=== PATIENT | female | born 1955 | race Caucasian/White ===

== ENCOUNTER 2018-06-03 08:08 | Outpatient (CLI) | payer BC ==
--- NOTE | 2018-06-03 09:34 | BD ---
BONE DENSITOMETRY: Date: 06/03/18 INDICATION: 63-year-old female for postmenopausal osteoporosis screening. FINDINGS: Lumbar Spine: BMD (g/cm2) L1 0.953 T-Score: -0.3 L2 1.031 T-Score: 0.0 L3 1.040 T-Score: -0.4 L4 0.908 T-Score: -1.4 Total 0.981 T-Score: -0.6 Left Femoral Neck: 0.840 T-Score: -0.1 Total Femur: 1.000 T-Score: 0.5 IMPRESSION: Bone mineral density of the lumbar spine and femoral neck both are within normal range. POS: [facility]
--- NOTE | 2018-06-14 13:10 | MMO ---
Bilateral MAMMO Bilat Screen [facility]. CLINICAL HISTORY: Patient is 63 years old and is seen for screening. The patient has the following family history of breast cancer: maternal aunt, at age 40. VIEWS: The views performed were: bilateral craniocaudal with tomosynthesis and bilateral mediolateral oblique with tomosynthesis. FILMS COMPARED: The present examination has been compared to prior imaging studies performed at [facility] on 03/06/2015, 04/28/2016 and 05/13/2017. MAMMOGRAM FINDINGS: The breasts are heterogeneously dense, which could obscure a lesion on mammography. There are no suspicious masses, suspicious calcifications, or new areas of architectural distortion. IMPRESSION: THERE IS NO MAMMOGRAPHIC EVIDENCE OF MALIGNANCY. A ROUTINE FOLLOW-UP MAMMOGRAM IN 1 YEAR IS RECOMMENDED. THE RESULTS OF THIS EXAM WERE SENT TO THE PATIENT. ACR BI-RADS Category 1 - Negative MAMMOGRAPHY NOTE: 1. A negative mammogram report should not delay a biopsy if a dominant of clinically suspicious mass is present. 2. Approximately 10% to 15% of breast cancers are not detected by mammography. 3. Adenosis and dense breasts may obscure an underlying neoplasm.
== END 2018-06-03 08:09 | disposition home or self-care (01) ==
LOC: BICMAMMO 08:08
PROVIDERS: ATTEND Internal Medicine
DX: Z12.31 Encounter for screening mammogram for malignant neoplasm of breast (principal); Z13.820 Encounter for screening for osteoporosis; M85.88 Other specified disorders of bone density and structure, other site; Z80.3 Family history of malignant neoplasm of breast
CPT/HCPCS: 77063; 77067; 77080

== ENCOUNTER 2018-06-03 08:53 | Outpatient (CLI) | payer BC, OTHER ==
--- NOTE | 2018-06-03 09:12 | RAD ---
Right thumb 3 views: 06/03/2018 COMPARISON: None HISTORY: Right thumb pain for one year FINDINGS: There is severe degenerative change involving the first carpometacarpal joint with joint sp jean narrowing, subchondral sclerosis, and prominent osteophyte formation. There is joint space narrowing and lateral osteophyte formation involving the first interphalangeal joint. No acute fractu re or evidence of dislocation is seen. IMPRESSION: Severe degenerative change at the first carpometacarpal joint. No acute fracture or evide nce of dislocation.
== END 2018-06-03 08:54 | disposition home or self-care (01) ==
LOC: BICRAD 08:53
PROVIDERS: ATTEND Internal Medicine
DX: M79.644 Pain in right finger(s) (principal); M18.11 Unilateral primary osteoarthritis of first carpometacarpal joint, right hand
CPT/HCPCS: 81001

== ENCOUNTER 2018-06-22 10:53 | Outpatient (CLI) | payer BC, OTHER ==
--- NOTE | 2018-06-22 13:31 | RAD ---
LUMBAR SPINE 4 VIEWS: INDICATION: History of right-sided sciatica. COMPARISON: CT of the abdomen and pelvis dated 03/24/2013. FINDINGS: There is bilateral nephrolithiasis. Bowel gas pattern is unobstructed. There are phleboliths within the lower pelvis. There is multilevel degenerative disk disease. Spinal alignment and vertebral galdino dy heights are preserved. No pars defects are evident. IMPRESSION: 1. Mild degenerative disk disease of the lumbar spine. 2. Bilateral nephrolithiasis. POS: [facility]
== END 2018-06-22 10:54 | disposition home or self-care (01) ==
LOC: BICRAD 10:53
PROVIDERS: ATTEND Internal Medicine Rheumatology
DX: M51.16 Intervertebral disc disorders with radiculopathy, lumbar region (principal); N20.0 Calculus of kidney
CPT/HCPCS: 72110

== ENCOUNTER 2021-09-04 13:34 | Outpatient (CLI) | payer MEDICARE, BC, OTHER | END 2021-09-04 13:35 | disposition home or self-care (01) | LOC: BICMAMMO 13:34 | PROVIDERS: ATTEND Internal Medicine | DX: Z12.31 Encounter for screening mammogram for malignant neoplasm of breast (principal); Z80.3 Family history of malignant neoplasm of breast | CPT/HCPCS: 77063; 77067 ==

== ENCOUNTER 2022-10-13 13:05 | Outpatient (CLI) | payer MEDICARE, BC, OTHER | END 2022-10-13 13:06 | disposition home or self-care (01) | LOC: BICMAMMO 13:05 | PROVIDERS: ATTEND Internal Medicine | DX: Z12.31 Encounter for screening mammogram for malignant neoplasm of breast (principal); Z13.820 Encounter for screening for osteoporosis; M85.88 Other specified disorders of bone density and structure, other site; Z78.0 Asymptomatic menopausal state; Z80.3 Family history of malignant neoplasm of breast | CPT/HCPCS: 77063; 77067; 77080 ==